=== PATIENT | female | born 1990 | race Hispanic/Latino ===

== ENCOUNTER 2020-08-31 01:03 | Emergency (ER) | payer SELFPAY ==
[2020-08-31 01:55] LABS: Basophils % (Auto) 0.3 % (0.0-1.8); Eosinophils # (Auto) 0.2 K/mm3 (0.0-0.4); Eosinophils % (Auto) 2.3 % (0.0-4.3); Hemoglobin 14.2 gm/dl (10.1-14.3); Lymphocytes # (Auto) 2.4 K/mm3 (1.2-5.4); Lymphocytes % (Auto) 34.1 % (13.4-35.0); Mean Corpuscular HGB Conc 35 % (30-34); Mean Corpuscular Volume 81 fl (79-97); Monocytes # (Auto) 0.5 K/mm3 (0.0-0.8); Monocytes % (Auto) 7.2 % (0.0-7.3); Platelet Count 327 K/mm3 (140-440); Red Blood Count 5.06 M/mm3 (3.65-5.03); Red Cell Distribution Width 13.7 % (13.2-15.2)
--- NOTE | 2020-08-31 01:58 | XRay Report ---
CHEST PA AND LATERAL VIEWS INDICATION: chest pain with cristofer. COMPARISON: None. FINDINGS: Support devices: None. Heart: Within normal limits. Lungs/Pleura: No acute pulmonary or pleural findings. IMPRESSION: 1. No acute findings. Signer Name: William Gan MD Signed: 08/31/2020 1:54 AM Workstation Name: [id number]
[2020-08-31 02:17] LABS: Alanine Aminotransferase 13 units/L (7-56); Albumin 3.7 g/dL (3.9-5); BUN/Creatinine Ratio 10; Blood Urea Nitrogen 10 mg/dL (7-17); Calcium 9.1 mg/dL (8.4-10.2); Hemolysis Index 6
[2020-08-31 06:36] VITALS: BP 123/58
--- NOTE | 2020-08-31 08:17 | Emergency Department Report ---
<MAURICIO KAYE - Last Filed: 08/31/20 09:22> ED General Adult HPI - General Chief complaint: Chest Pain Stated complaint: CHEST PAIN/LT KNEE PAIN/WEAKNESS Time Seen by Provider: 08/31/20 07:53 Source: patient Mode of arrival: Ambulatory Limitations: No Limitations - History of Present Illness Initial comments: 30-year-old female patient presents to the emergency department with complaints of chest tightness and associated dyspnea starting 3 days ago. Patient states she has been coughing as well. Symptoms are worse with coughing. No known sick contacts. No current steroid or antibiotic use. No recent travel. No history of hypertension, hyperlipidemia, diabetes. No family history of early heart disease. No venous thromboembolism risk factors identified on history. Patient also reports ongoing chronic left knee issues. Denies fever, chills, hemoptysis, wheezing, diaphoresis, back pain, lower extremity pain/swelling. Denies all other complaints at this time. Severity scale (0 -10): 4 - Related Data Previous Rx's Medication Instructions Recorded Last Taken Type Benzonatate [Tessalon Perles] 200 mg PO Q8HR #30 capsule 08/31/20 Unknown Rx Allergies Allergy/AdvReac Type Severity Reaction Status Date / Time codeine Allergy Swelling Verified 08/31/20 01:16 ED Review of Systems Other: GENERAL: Negative for fever, chills, weight change, anorexia, fatigue. ENT: Negative for ear pain, difficulty hearing, sore throat, nasal congestion, epistaxis. CARDIOVASCULAR: Positive for chest tightness and shortness of breath. PULMONARY: Negative for cough, dyspnea, wheezing, orthopnea, cyanosis. GASTROINTESTINAL: Negative for abdominal pain, nausea, vomiting, diarrhea, constipation. MUSCULOSKELETAL: Positive for chronic left knee pain. NEUROLOGICAL: Negative for headache, seizure, syncope, paresthesias, weakness. INTEGUMENTARY: Negative for erythema, rash, diaphoresis, laceration, ecchymosis. HEMATOLOGICAL: Negative for hemoptysis, hematemesis, hematochezia, hematuria. PSYCHIATRIC: Negative for hallucinations, suicidal ideation, homicidal ideation, anxiety, depression. ED Past Medical Hx - Past Medical History Previous Medical History?: Yes Additional medical history: irreg heartbeat - Surgical History Past Surgical History?: Yes Additional Surgical History: tubal ligation - Social History Smoking Status: Current Every Day Smoker Substance Use Type: None - Medications Home Medications: Home Medications Medication Instructions Recorded Confirmed Last Taken Type Benzonatate [Tessalon Perles] 200 mg PO Q8HR #30 capsule 08/31/20 Unknown Rx ED Physical Exam - General Limitations: No Limitations - Other Other exam information: General: Awake and alert. No acute distress. Head: Atraumatic, normocephalic. Eyes: EOMI. Pupils are equal and round. Normal sclera and conjunctiva. ENT: Oral mucosa is moist. Normal pharyngeal exam. Neck: Supple. No lymphadenopathy. Pulmonary: No respiratory distress. Clear to auscultation bilaterally. Chest pain reproducible with coughing. Cardiac: Regular rate and rhythm. Pulses are palpable and equal bilaterally. No lower extremity cyanosis or edema. Skin: Warm and dry. No rashes. Abdomen: Soft, non-tender, non-protuberant. No guarding, rigidity, or rebound. Bowel sounds are normal. No organomegaly or masses noted. Back: Normal alignment. No CVA tenderness. Extremities: Symmetrical. Full range of motion intact. Left knee range of motion intact but painful in all directions. Valgus and varus stress tests are negative. Anterior drawer sign is negative. No obvious deformity or dislocation. Distal neurovascular and motor/sensory function intact. Neurological: Alert and oriented, appropriately interactive, no focal deficits. Psych: Cooperative. Appropriate mood and affect. Speech is evenly metered. Th oughts are logically construed. ED Medical Decision Making - Lab Data Result diagrams: 08/31/20 01:30 08/31/20 01:30 - EKG Data 08/31/20 08:20 EKG shows normal sinus rhythm with a ventricular rate of 85 bpm. Normal axis. Normal GA interval. Normal QT interval. Good R wave progression. No ST segme nt changes. Over read by attending emergency physician, who agrees with this interpretation. - Medical Decision Making Differential diagnosis including but not limited to: acute coronary syndrome, cardiac arrhythmia, pericarditis, pericardial effusion/cardiac tamponade, pn eumonia, pleural effusion, pulmonary embolism, asthma, musculoskeletal pain Patient presents to the emergency department with signs and/or symptoms that arise low risk clinical suspicion for pulmonary embolism. The patient has none of the following clinical criteria: age >50, heart rate >100, room air O2 saturation <94%, history of DVT/PE, recent trauma/surgery, hemoptysis, exogenous estrogen, or signs/symptoms of DVT. As a result, this patient has very low probability of pulmonary embolism and further testing is not indicated. On re-evaluation, the patient is well-appearing, vital signs are stable, and pain is controlled. EKG without overt evidence of STEMI, Brugada syndrome, delta wave, significantly prolonged QT, or life-threatening arrhythmia. Supervising physician is in agreement with EKG interpretation. Initial troponin within normal limits. Low clinical suspicion for other life-threatening intrathoracic pathology including but not limited to: pulmonary embolism, aortic aneury sm/dissection, pneumothorax, or pneumonia. The patient is at low risk (0.9%- 2.7%) of experiencing a major cardiac event within the next six weeks according to the HEART score guidelines. The patient has no known history of coronary artery disease and is therefore a candidate for risk stratification using the HEART pathway. Patient has agreed to undergo additional testing as recommended by the HEART pathway guidelines. Repeat troponin within normal limits. History and exam findings are most s uggestive of musculoskeletal chest wall pain. Patient will be prescribed appropriate antitussives and advised to take Tylenol/Motrin for pain as needed. She has also been provided with a referral to orthopedics for her chronic knee pain. Strict return precautions provided. Discussed the importance of prompt PCP follow-up. Additionally, it has been explained to the patient that the primary purpose of this evaluation was to identify whether or not an acute coronary syndrome was present, and that the results of todays evaluation do not reliably exclude underlying coronary artery disease. Patient expressed understanding and was given the opportunity to ask questions, all of which were satisfactorily answered prior to discharge home. Written instructions and appropriate prescriptions/referrals provided. ED Disposition Clinical Impression: Chest pain Disposition: DC-01 TO HOME OR SELFCARE Is pt being admited?: No Does the pt Need Aspirin: No Condition: Stable Instructions: Nonspecific Chest Pain, Adult Additional Instructions: Take Tylenol every 4 hours and Motrin every 8 hours as needed for pain. Take Tessalon as directed for cough. Apply heating pad to affected area as needed for pain. Wear [place] wrap to left knee as needed. Follow-up with primary care provider and orthopedics this week. Call today to schedule an appointment. See referral information below. Return to the emergency department immediately for new or worsening symptoms. Prescriptions: Benzonatate [Tessalon Perles] 200 mg PO Q8HR #30 capsule Referrals: PRIMARY CARE, [Primary Care Provider] - 3-5 Days Forms: Work/School Release Form(ED) HEART Score - HEART Score History: Slightly suspicious EKG: Normal Age: < 45 Risk factors: No known risk factors Troponin: < normal limit HEART Score: 0 - Critical Actions Critical Actions: 0-3 pts:0.9-1.7%risk of adverse cardiac event.Candidate for discharge <WILMAN ROSALES - Last Filed: 08/31/20 15:18> ED Review of Systems ROS: Stated complaint: CHEST PAIN/LT KNEE PAIN/WEAKNESS Other details as noted in HPI ED Course Vital Signs 08/31/20 08/31/20 01:11 06:36 Temperature 98.0 F Pulse Rate 98 H 90 Respiratory 18 16 Rate Blood Pressure 135/69 123/58 O2 Sat by Pulse 96 98 Oximetry ED Medical Decision Making - Lab Data Result diagrams: 08/31/20 01:30 08/31/20 01:30 Critical care attestation.: If time is entered above; I have spent that time in minutes in the direct care of this critically ill patient, excluding procedure time. ED Disposition Is pt being admited?: No Does the pt Need Aspirin: No HEART Score - HEART Score Troponin: Troponin T < 0.010 ng/mL (0.00-0.029) 08/31/20 05:16
--- NOTE | 2020-08-31 10:08 | Electrocardiograph Report ---
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
== END 2020-08-31 08:43 | disposition home or self-care (01) ==
LOC: ED 01:03
DX: R07.89 Other chest pain (principal); F17.200 Nicotine dependence, unspecified, uncomplicated; Z90.49 Acquired absence of other specified parts of digestive tract; Z88.6 Allergy status to analgesic agent
CPT/HCPCS: 36415; 71046; 80053; 84484; 85025; 93005